=== PATIENT | female | born 1990 | race Caucasian/White ===

== ENCOUNTER 2017-09-09 15:22 | Emergency (ER) | payer SELFPAY ==
[2017-09-09 15:23] VITALS: BP 130/81; PULSE 82; RESP 16; O2SAT 100
[2017-09-09 15:30] VITALS: BP 141/89; PULSE 83; RESP 16; TEMP 36.7; O2SAT 100; BMI 26.6
[2017-09-09 16:02] LABS: Urine Pregnancy, HCG Qual. Positive (Negative)
[2017-09-09 16:06] LABS: Basophils % 0.3 % (0.1-2.0); Eosinophils # 0.1 K/mm3 (0.0-0.4); Eosinophils % 1.1 % (0.1-12.0); Hematocrit 41.7 % (37.0-47.0); Hemoglobin 13.8 g/dL (12.2-16.2); Lymphocytes # 2.5 K/mm3 (0.7-4.5); Lymphocytes % 25.7 K/mm3 (10-50); Mean Corpuscular Hemoglobin 30.2 pg (27.0-31.2); Mean Corpuscular Volume 91.4 fl (81-99); Mean Platelet Volume 8.3 fl (7.4-10.4); Monocytes # 0.5 K/mm3 (0.1-1.0); Monocytes % 4.9 % (1.7-9.3); Neutrophils # 6.7 K/mm3 (1.8-7.8); Platelet Count 224 K/mm3 (142-424); Red Blood Count 4.57 M/mm3 (4.20-5.40); Red Cell Distribution Width 12.3 % (11.5-17.5); White Blood Count 9.8 K/mm3 (4.8-10.8)
[2017-09-09 16:23] VITALS: BP 140/53; PULSE 78; RESP 16; O2SAT 100
[2017-09-09 16:31] LABS: Alanine Aminotransferase 14 U/L (12-78); Alkaline Phosphatase 66 U/L (46-116); Anion Gap 13.4 mEq/L (5-15); Aspartate Amino Transferase 5 U/L (15-37); Bilirubin,Total 0.1 mg/dL (0.2-1.0); Blood Urea Nitrogen 6 mg/dL (7-18); Calcium 9.1 mg/dL (8.5-10.1); Carbon Dioxide 25 mmol/L (21.0-32.0); Chloride 102 mmol/L (98-107); Creatinine Clearance Estimated 139 mL/min (0-300); Creatinine,Serum 0.69 mg/dL (0.55-1.02); Estimated Glomerular Filt Rate 101 ml/min (>60); GFR (African American) 123 ML/MIN (>60); Glucose 79 mg/dL (74-106); Potassium 3.4 mmoL/L (3.5-5.1); Sodium 137 mmol/L (136-145)
[2017-09-09 16:40] LABS: HCG Qualitative, Serum Positive (Negative)
--- NOTE | 2017-09-09 16:46 | US_ITS ---
US OB transvaginal HISTORY: ITS.REASON: abdo pain, , r/o ectopic ORDERING PHYSICIAN: Manny Steve MD PATIENT AGE: 27 years COMPARISON: None FINDINGS: An intrauterine gestational sac is present with a pole with a crown-rump length of 1.64cm correlating to gestational age of 8 weeks 1 day. heart tones are present with an FHR of 151 bpm's. Yolk sac is noted. The amnion and chorion have not yet fused. Adnexa: Unremarkable. IMPRESSION: Live intrauterine gestation at 8 weeks 1 day. Estimated due date by ultrasound is 04/22/2018.
--- NOTE | 2017-09-09 16:59 | [facility].EDGENADL ---
ED Disposition Clinical Impression: Right lower quadrant abdominal pain, 8 weeks gestation of Disposition: Home, Self-Care Condition on Discharge: Good Instructions: DI for Abdominal Pain -- Early Additional Instructions: Additional instructions for ABDOMINAL PAIN: See your physician as soon as possible for further evaluation. Return immediately within 24 hours if worsening abdominal pain, vomiting, shortness of breath, fever, vomiting of blood or abdominal distention, vaginal bleeding. Referrals: Provider,Referral, [Primary Care Provider] - - Critical Care Critical Care Time: No Attestation: On 09/09/17, the high probability of a clinically significant, sudden or life threatening deterioration of the following system(s) required my full and direct attention, intervention and personal management. The time I documented below is in addition to time spent performing reported procedures but includes the following listed in this critical care notation. Medical Decision Making - Pérez Inquiry Pt receiving controlled substance: No Vital Signs: 09/09/17 15:23 09/09/17 15:30 09/09/17 16:23 Temperature 98.1 F Temperature Source Oral Pulse Rate [Right Radial] 82 83 78 Respiratory Rate 16 16 16 Blood Pressure [Right Arm] 130/81 141/89 140/53 Blood Pressure Mean [Right Arm] 97 106 82 Blood Pressure Source [Right Arm] Automatic Cuff Blood Pressure Position [Right Arm] Sitting 02 Sat by Pulse Oximetry 100 100 100 Oxygen Delivery Method Room Air - Lab Data Lab Results 09/09/17 15:50: WBC 9.8, RBC 4.57, Hgb 13.8, Hct 41.7, MCV 91.4, MCH 30.2, MCHC 33.0, RDW 12.3, Plt Count 224, MPV 8.3, Neut % (Auto) 68.0, Lymph % (Auto) 25.7, [place] % (Auto) 4.9, Eos % (Auto) 1.1, Baso % (Auto) 0.3, Neut # (Auto) 6.7, Lymph # (Auto) 2.5, [place] # (Auto) 0.5, Eos # (Auto) 0.1, Baso # (Auto) 0.0 09/09/17 15:50: Urine HCG, Qual Positive 09/09/17 15:50: Sodium 137, Potassium 3.4 L, Chloride 102, Carbon Dioxide 25, Anion Gap 13.4, BUN 6 L, Creatinine 0.69, Estimated Creat Clear 139, Estimated GFR 101, Est GFR ( Amer) 123, Glucose 79, Calcium 9.1, Total Bilirubin 0.1 L, AST 5 L, ALT 14, Alkaline Phosphatase 66, Total Protein 8.0, Albumin 4.0, Globulin 4.0 H, Albumin/Globulin Ratio 1.0 L 09/09/17 15:50: Serum HCG, Qual Positive 09/09/17 15:50: HCG, Quant [id number] 09/09/17 15:50: Urine Color Yellow, Urine Appearance Clear, Urine pH 5.5, Ur Specific [place] 1.010, Urine Protein Negative, Urine Glucose (UA) Negative, Urine Ketones Negative, Urine Blood Negative, Urine Nitrate Negative, Urine Bilirubin Negative, Urine Urobilinogen 0.2, Ur Leukocyte Esterase Trace, Urine RBC None, Urine WBC 5-10, Ur Squamous Epith Cells 10-20, Ur Transition Epith Cell Occ, Urine Bacteria Trace 09/09/17 17:20: Blood Type O Positive Result diagrams: 09/09/17 15:50 09/09/17 15:50 - US Data US Images: Pelvis Findings Narrative: As per [facility] procedure, ultrasound report received from line maintenance technician: 8 week 1 day intrauterine . No ovarian cyst. No signs of ectopic . is viable. Medical Decision Narrative: I discussed further workup of her right lower quadrant abdominal pain with her. I discussed the possibility of appendicitis. We discussed the dangers of appendicitis, particularly if undiagnosed, including rupture of appendix, peritonitis, . I also discussed radiation in and CT scanning in . At this time she refuses further workup, including CT scan. She says she always has right lower quadrant abdominal pain, it is just a little worse now, feels more like a pulling sensation. She wants to go home. I advised her if she worsens in the next 24 hours including increasing pain, fever, or vomiting, to return to an emergency department. I advised that [facility] might be able to do an ultrasound for appendicitis if she prefers that route, but that test is no
[2017-09-09 17:54] LABS: Microscopic, Urine URINE MICROSCOPIC (MICROSCOPIC)
[2017-09-09 17:55] LABS: Appearance,Urine CLEAR (Clear); Bilirubin,Urine Negative (Negative); Blood, Urine Negative (Negative); Color,Urine YELLOW (Yellow); Glucose,Urine (UA) Negative (Negative); Ketones,Urine Negative (Negative); Leukocyte Esterase,Urine TRACE (Negative); Nitrate,Urine Negative (Negative); PH,Urine 5.5 (5.0-8.5); Protein,Urine Negative (Negative); Urobilinogen,Urine 0.2 EU/dl (0.2)
[2017-09-09 18:12] LABS: HCG,Quantitative 114057 mIU/mL
[2017-09-09 18:19] LABS: Bacteria,Urine Trace /lpf; Transitional Epi Cells,Urine OCC #/lpf (0-3)
[2017-09-09 18:56] VITALS: BP 140/53; PULSE 83; RESP 16; TEMP 36.7; O2SAT 98
== END 2017-09-09 19:00 | disposition home or self-care (01) ==
PROVIDERS: Emergency Provider Emergency Medicine
DX: R10.31 Right lower quadrant pain (principal); Z3A.08 8 weeks gestation of pregnancy
CPT/HCPCS: 36415; 76830; 80053; 81001; 81025; 84702; 84703; 85025; 86900; 86901; 99284